=== PATIENT | male | born 1935 | race Caucasian/White ===

== ENCOUNTER 2018-01-19 18:31 | Inpatient (IN) | payer OTHER ==
[~2018-01-19] VITALS: Ht 177.8 cm; Wt 120.2 kg
[2018-01-19] MEDS ORDERED: ASPI-515 PO (19:12)
[2018-01-19] MEDS ORDERED: CALC-112 PO ×2 (19:12→19:14)
[2018-01-19] MEDS ORDERED: BUME0.5T PO (19:12)
[2018-01-19] MEDS ORDERED: LISI-170 PO (19:12)
[2018-01-19] MEDS ORDERED: LATA2.5D2 OP (19:12)
[2018-01-19] MEDS ORDERED: DOCU100C33 PO (19:12)
[2018-01-19] MEDS ORDERED: ALLO300T PO (19:12)
[2018-01-19] MEDS ORDERED: CHOL100011 PO (19:12)
[2018-01-19] MEDS ORDERED: SPIR25TA3 PO (19:12)
[2018-01-19] MEDS ORDERED: TIMO5DRO28 OP ×2 (19:12→19:14)
[2018-01-19] MEDS ORDERED: TRAZ100T15 PO (19:12)
[2018-01-19] MEDS ORDERED: PARO40TA3 PO (19:12)
[2018-01-19] MEDS ORDERED: WARF2.5T73 PO (19:12)
[2018-01-19] MEDS ORDERED: OMEP-110 PO (19:12)
[2018-01-19] MEDS ORDERED: CARV6.252 PO (19:12)
[2018-01-19] MEDS ORDERED: DIGO125T PO (19:12)
[2018-01-19] MEDS ORDERED: UBID100C24 PO (19:12)
[2018-01-19] MEDS ORDERED: ISOS20TA3 PO (19:12)
[2018-01-19] MEDS ORDERED: PRAV80TA2 PO (19:12)
[2018-01-19] MEDS ORDERED: SODIUM CHLORIDE 0.9% 1,000ML IVBOLUS ONE (19:30)
[2018-01-19] MEDS ORDERED: SODIUM CHLORIDE FLUSH 10ML SYR IVF ONE (19:30)
[2018-01-19 19:54] LABS: BASOPHILS # (AUTO) 0.05 x10^3/uL (0-0.1); BASOPHILS % (AUTO) 1 % (0-1); EOSINOPHILS # (AUTO) 0.34 x10^3/uL (0-0.4); EOSINOPHILS % (AUTO) 3 % (1-7); LYMPHOCYTES # (AUTO) 1.07 x10^3/uL (1-3.4); LYMPHOCYTES % (AUTO) 10 % (22-44); MD NO; MEAN CORPUSCULAR HEMOGLOBIN 30.9 pg (27.5-34.5); MEAN CORPUSCULAR HGB CONC 32.4 g/dL (33.2-36.2); MEAN CORPUSCULAR VOLUME 95.3 fL (81-97); MEAN PLATELET VOLUME 8.1 fL (7.4-10.4); MONOCYTES # (AUTO) 0.58 x10^3/uL (0.2-0.8); MONOCYTES % (AUTO) 5 % (2-9); NEUTROPHILS # (AUTO) 8.61 x10^3/uL (1.8-6.8); NEUTROPHILS % (AUTO) 81 % (42-75); PLATELET COUNT 178 x10^3/uL (130-400); RED BLOOD COUNT 4.46 x10^6/uL (4.38-5.82); RED CELL DISTRIBUTION WIDTH 15.6 % (9.4-14.8)
[2018-01-19 19:55] LABS: ALANINE AMINOTRANSFERASE 19 U/L (12-78); ALBUMIN 3.5 g/dL (3.4-5.0); ANION GAP 5 mmol/L (5-15); CALCIUM 9.4 mg/dL (8.5-10.1); CHLORIDE 104 mmol/L (98-107); CREATININE 1.35 mg/dL (0.7-1.3)
[2018-01-19 20:00] LABS: ALKALINE PHOSPHATASE 89 U/L (45-117); BILIRUBIN,TOTAL 0.5 mg/dL (0.2-1.0); T4 (THYROXINE) 5.6 mcg/dL (4.5-12.1); TOTAL PROTEIN 6.9 g/dL (6.4-8.2); TROPONIN I 0.093 ng/mL (0.000-0.045)
[2018-01-19 20:57] LABS: INTERNATIONAL NORMALIZED RATIO 3.53 (0.93-1.1); PROTHROMBIN TIME 35.5 Seconds (9.6-11.5)
[2018-01-19] MEDS ORDERED: ASPIRIN 81 MG TABLET CHEW PO ONE (21:00)
[2018-01-19] MEDS ORDERED: ASPIRIN 81 MG TABLET CHEW ONE (21:39)
[2018-01-19] MEDS ORDERED: BISACODYL 10 MG SUPP PR PRN (22:00)
[2018-01-19] MEDS ORDERED: POLYETHYLENE GLYCOL 17 GM PACKET PO PRN (22:00)
[2018-01-19] MEDS ORDERED: ONDANSETRON 2MG/ML, 2ML IVPush PRN (22:00)
[2018-01-19] MEDS ORDERED: ACETAMINOPHEN 325 MG TABLET PO PRN (22:00)
[2018-01-19] MEDS: PRAVASTATIN 40 MG TABLET PO SCH (23:21)
[2018-01-19] MEDS: DOCUSATE 100 MG CAPSULE PO SCH (23:32)
[2018-01-19] MEDS: HEPARIN 5,000 UNITS/ML, 1ML SQ SCH (23:32)
[2018-01-19] MEDS: CARVEDILOL 6.25 MG TABLET PO SCH (23:32)
[2018-01-19] MEDS: SODIUM CHLORIDE FLUSH 10ML SYR IVF SCH (23:32)
[2018-01-19 23:35] VITALS: BP 117/22
[2018-01-20 02:00] VITALS: BP 117/72
[2018-01-20 04:36] VITALS: BP 120/79
[2018-01-20 05:01] LABS: MICROSCOPIC NOT IND
[2018-01-20 05:20] LABS: CULTURE INDICATED? NO
[2018-01-20 07:19] VITALS: BP 127/89
[2018-01-20 07:34] LABS: BASOPHILS # (AUTO) 0.24 x10^3/uL (0-0.1); BASOPHILS % (AUTO) 2 % (0-1); EOSINOPHILS # (AUTO) 0.47 x10^3/uL (0-0.4); EOSINOPHILS % (AUTO) 4 % (1-7); LYMPHOCYTES # (AUTO) 1.25 x10^3/uL (1-3.4); LYMPHOCYTES % (AUTO) 12 % (22-44); MD NO; MEAN CORPUSCULAR HEMOGLOBIN 31.7 pg (27.5-34.5); MEAN CORPUSCULAR VOLUME 96.1 fL (81-97); MEAN PLATELET VOLUME 8.1 fL (7.4-10.4); MONOCYTES # (AUTO) 0.55 x10^3/uL (0.2-0.8); MONOCYTES % (AUTO) 5 % (2-9); NEUTROPHILS # (AUTO) 8.31 x10^3/uL (1.8-6.8); NEUTROPHILS % (AUTO) 77 % (42-75); PLATELET COUNT 169 x10^3/uL (130-400); RED BLOOD COUNT 4.32 x10^6/uL (4.38-5.82); RED CELL DISTRIBUTION WIDTH 15.4 % (9.4-14.8)
[2018-01-20 07:42] LABS: INTERNATIONAL NORMALIZED RATIO 2.78 (0.93-1.1); PROTHROMBIN TIME 28.1 Seconds (9.6-11.5)
[2018-01-20 07:47] LABS: ALBUMIN 3.5 g/dL (3.4-5.0); ANION GAP 4 mmol/L (5-15); CALCIUM 8.8 mg/dL (8.5-10.1); CHLORIDE 108 mmol/L (98-107)
[2018-01-20 07:50] LABS: ALANINE AMINOTRANSFERASE 18 U/L (12-78); ALKALINE PHOSPHATASE 90 U/L (45-117); BILIRUBIN,TOTAL 0.8 mg/dL (0.2-1.0); TOTAL PROTEIN 6.7 g/dL (6.4-8.2)
[2018-01-20 07:51] LABS: TROPONIN I 0.084 ng/mL (0.000-0.045)
[2018-01-20] MEDS ORDERED: TEMPLATE NON-FORMULARY MED. (Timolol (Betimol) 1 DROP) OP SCH (09:00)
[2018-01-20] MEDS ORDERED: WARFARIN 2.5 MG TABLET PO-COUM SCH (09:00)
[2018-01-20] MEDS ORDERED: TEMPLATE NON-FORMULARY MED. (Ubidecarenone (Coq-10) 100 MG) PO SCH (09:00)
[2018-01-20] MEDS: SPIRONOLACTONE 25 MG TABLET PO SCH (09:03)
[2018-01-20] MEDS: HEPARIN 5,000 UNITS/ML, 1ML SQ SCH ×2 (09:03→16:09)
[2018-01-20] MEDS: SODIUM CHLORIDE FLUSH 10ML SYR IVF SCH ×2 (09:03→21:47)
[2018-01-20] MEDS: BUMETANIDE 1 MG TABLET PO SCH (09:04)
[2018-01-20] MEDS: ASPIRIN 81 MG TABLET EC PO SCH (09:05)
[2018-01-20] MEDS: DOCUSATE 100 MG CAPSULE PO SCH ×2 (09:05→21:00)
[2018-01-20] MEDS: CARVEDILOL 6.25 MG TABLET PO SCH ×2 (09:05→21:46)
[2018-01-20] MEDS: DIGOXIN 0.125 MG TABLET PO SCH (09:06)
[2018-01-20] MEDS: CALCIUM/VITAMIN D3 250-125 TABLET PO SCH (09:06)
[2018-01-20] MEDS: ISOSORBIDE MONONITRATE ER 30 MG TABLET PO SCH (09:06)
[2018-01-20] MEDS: LISINOPRIL 5 MG TABLET PO SCH (09:07)
[2018-01-20] MEDS: PAROXETINE 20 MG TABLET PO SCH (09:07)
[2018-01-20] MEDS: ALLOPURINOL 300 MG TABLET PO SCH (09:08)
[2018-01-20] MEDS: SENNA/DOCUSATE TABLET PO SCH (09:08)
[2018-01-20] MEDS: CHOLECALCIFEROL 1,000 UNIT TABLET PO SCH (09:08)
[2018-01-20] MEDS: OMEPRAZOLE 20 MG CAPSULE.DR PO SCH (09:08)
[2018-01-20] MEDS: LATANOPROST OPHTH 0.005%, 2.5ML OP SCH (10:43)
[2018-01-20 13:41] VITALS: BP 111/77
[2018-01-20] MEDS ORDERED: TIMOLOL OPHTH 0.5%, 5ML OP SCH (14:17)
[2018-01-20] MEDS ORDERED: WARFARIN 2 MG TABLET PO-COUM ONE (17:16)
[2018-01-20] MEDS ORDERED: WARFARIN 1 MG TABLET PO-COUM ONE (17:21)
[2018-01-20] MEDS: WARFARIN 2.5 MG TABLET PO-COUM SCH (17:25)
[2018-01-20 21:00] VITALS: BP 125/78
[2018-01-20] MEDS: PRAVASTATIN 40 MG TABLET PO SCH (21:00)
[2018-01-20 23:29] VITALS: BP 120/66
[2018-01-21 00:40] VITALS: BP 115/73
[2018-01-21 05:43] LABS: BASOPHILS # (AUTO) 0.02 x10^3/uL (0-0.1); BASOPHILS % (AUTO) 0 % (0-1); EOSINOPHILS # (AUTO) 0.48 x10^3/uL (0-0.4); EOSINOPHILS % (AUTO) 5 % (1-7); LYMPHOCYTES # (AUTO) 1.08 x10^3/uL (1-3.4); LYMPHOCYTES % (AUTO) 11 % (22-44); MD NO; MEAN CORPUSCULAR HEMOGLOBIN 31.9 pg (27.5-34.5); MEAN CORPUSCULAR HGB CONC 33.2 g/dL (33.2-36.2); MEAN CORPUSCULAR VOLUME 95.9 fL (81-97); MEAN PLATELET VOLUME 8.3 fL (7.4-10.4); MONOCYTES # (AUTO) 0.58 x10^3/uL (0.2-0.8); MONOCYTES % (AUTO) 6 % (2-9); NEUTROPHILS # (AUTO) 7.92 x10^3/uL (1.8-6.8); NEUTROPHILS % (AUTO) 79 % (42-75); PLATELET COUNT 165 x10^3/uL (130-400); RED BLOOD COUNT 4.12 x10^6/uL (4.38-5.82); RED CELL DISTRIBUTION WIDTH 15.5 % (9.4-14.8)
[2018-01-21 05:48] LABS: ANION GAP 4 mmol/L (5-15); CALCIUM 8.6 mg/dL (8.5-10.1); CHLORIDE 106 mmol/L (98-107); CREATININE 1.35 mg/dL (0.7-1.3)
[2018-01-21 07:22] VITALS: BP 115/76
[2018-01-21] MEDS: PAROXETINE 20 MG TABLET PO SCH (08:41)
[2018-01-21] MEDS: CALCIUM/VITAMIN D3 250-125 TABLET PO SCH (08:41)
[2018-01-21] MEDS: HEPARIN 5,000 UNITS/ML, 1ML SQ SCH ×4 (08:41→23:54)
[2018-01-21] MEDS: ALLOPURINOL 300 MG TABLET PO SCH (08:42)
[2018-01-21] MEDS: CARVEDILOL 6.25 MG TABLET PO SCH ×2 (08:42→20:00)
[2018-01-21] MEDS: DOCUSATE 100 MG CAPSULE PO SCH ×2 (08:42→19:59)
[2018-01-21] MEDS: CHOLECALCIFEROL 1,000 UNIT TABLET PO SCH (08:42)
[2018-01-21] MEDS: OMEPRAZOLE 20 MG CAPSULE.DR PO SCH (08:42)
[2018-01-21] MEDS: DIGOXIN 0.125 MG TABLET PO SCH (08:42)
[2018-01-21] MEDS: BUMETANIDE 1 MG TABLET PO SCH (08:42)
[2018-01-21] MEDS: ISOSORBIDE MONONITRATE ER 30 MG TABLET PO SCH (08:42)
[2018-01-21] MEDS: ASPIRIN 81 MG TABLET EC PO SCH (08:42)
[2018-01-21] MEDS: SPIRONOLACTONE 25 MG TABLET PO SCH (08:42)
[2018-01-21] MEDS: SENNA/DOCUSATE TABLET PO SCH (08:42)
[2018-01-21] MEDS: LATANOPROST OPHTH 0.005%, 2.5ML OP SCH (08:43)
[2018-01-21] MEDS: TIMOLOL OPHTH 0.5%, 5ML OP SCH (08:43)
[2018-01-21] MEDS: LISINOPRIL 5 MG TABLET PO SCH (08:43)
[2018-01-21] MEDS: SODIUM CHLORIDE FLUSH 10ML SYR IVF SCH ×2 (08:43→19:59)
[2018-01-21 10:25] LABS: % IRON SATURATION 23 % (20-55); IRON LEVEL 60 mcg/dL (65-175); TOTAL IRON BINDING CAPACITY 263 mcg/dL (250-450)
[2018-01-21 12:53] VITALS: BP 117/75
[2018-01-21 16:16] LABS: INTERNATIONAL NORMALIZED RATIO 2.73 (0.93-1.1); PROTHROMBIN TIME 27.6 Seconds (9.6-11.5)
[2018-01-21 19:08] VITALS: BP 110/69
[2018-01-21] MEDS: WARFARIN 2.5 MG TABLET PO-COUM SCH (19:08)
[2018-01-21] MEDS: PRAVASTATIN 40 MG TABLET PO SCH (19:59)
[2018-01-22 01:02] VITALS: BP 116/77
[2018-01-22 05:14] LABS: BASOPHILS # (AUTO) 0.02 x10^3/uL (0-0.1); BASOPHILS % (AUTO) 0 % (0-1); EOSINOPHILS # (AUTO) 0.38 x10^3/uL (0-0.4); EOSINOPHILS % (AUTO) 4 % (1-7); LYMPHOCYTES # (AUTO) 1.08 x10^3/uL (1-3.4); LYMPHOCYTES % (AUTO) 10 % (22-44); MD NO; MEAN CORPUSCULAR HEMOGLOBIN 31.6 pg (27.5-34.5); MEAN PLATELET VOLUME 8.4 fL (7.4-10.4); MONOCYTES # (AUTO) 0.65 x10^3/uL (0.2-0.8); MONOCYTES % (AUTO) 6 % (2-9); NEUTROPHILS # (AUTO) 8.49 x10^3/uL (1.8-6.8); NEUTROPHILS % (AUTO) 80 % (42-75); PLATELET COUNT 159 x10^3/uL (130-400); RED BLOOD COUNT 4.09 x10^6/uL (4.38-5.82); RED CELL DISTRIBUTION WIDTH 15.5 % (9.4-14.8)
[2018-01-22 05:27] LABS: CHLORIDE 106 mmol/L (98-107)
[2018-01-22 05:34] LABS: ANION GAP 8 mmol/L (5-15); CALCIUM 8.7 mg/dL (8.5-10.1)
[2018-01-22 07:23] VITALS: BP 125/81
[2018-01-22] MEDS: HEPARIN 5,000 UNITS/ML, 1ML SQ SCH (08:00)
[2018-01-22 08:32] LABS: INTERNATIONAL NORMALIZED RATIO 2.66 (0.93-1.1); PROTHROMBIN TIME 26.9 Seconds (9.6-11.5)
[2018-01-22] MEDS: TIMOLOL OPHTH 0.5%, 5ML OP SCH (09:00)
[2018-01-22] MEDS: LATANOPROST OPHTH 0.005%, 2.5ML OP SCH (09:26)
[2018-01-22] MEDS: ALLOPURINOL 300 MG TABLET PO SCH (09:27)
[2018-01-22] MEDS: SPIRONOLACTONE 25 MG TABLET PO SCH (09:27)
[2018-01-22] MEDS: DOCUSATE 100 MG CAPSULE PO SCH ×2 (09:27→20:26)
[2018-01-22] MEDS: BUMETANIDE 1 MG TABLET PO SCH (09:27)
[2018-01-22] MEDS: ISOSORBIDE MONONITRATE ER 30 MG TABLET PO SCH (09:27)
[2018-01-22] MEDS: CHOLECALCIFEROL 1,000 UNIT TABLET PO SCH (09:27)
[2018-01-22] MEDS: SENNA/DOCUSATE TABLET PO SCH (09:27)
[2018-01-22] MEDS: ASPIRIN 81 MG TABLET EC PO SCH (09:27)
[2018-01-22] MEDS: LISINOPRIL 5 MG TABLET PO SCH (09:28)
[2018-01-22] MEDS: DIGOXIN 0.125 MG TABLET PO SCH (09:28)
[2018-01-22] MEDS: OMEPRAZOLE 20 MG CAPSULE.DR PO SCH (09:28)
[2018-01-22] MEDS: PAROXETINE 20 MG TABLET PO SCH (09:28)
[2018-01-22] MEDS: CARVEDILOL 6.25 MG TABLET PO SCH ×2 (09:28→20:27)
[2018-01-22] MEDS: SODIUM CHLORIDE FLUSH 10ML SYR IVF SCH ×2 (09:29→20:26)
[2018-01-22] MEDS: CALCIUM/VITAMIN D3 250-125 TABLET PO SCH (09:30)
[2018-01-22 12:16] VITALS: BP 108/72
[2018-01-22] MEDS ORDERED: WARFARIN 2.5 MG TABLET PO-COUM ONE (18:00)
[2018-01-22 19:51] VITALS: BP 129/82
[2018-01-22] MEDS: PRAVASTATIN 40 MG TABLET PO SCH (20:27)
[2018-01-23 02:16] VITALS: BP 125/79
[2018-01-23 05:49] LABS: INTERNATIONAL NORMALIZED RATIO 2.35 (0.93-1.1); PROTHROMBIN TIME 23.8 Seconds (9.6-11.5)
[2018-01-23 07:11] VITALS: BP 121/81
[2018-01-23] MEDS: SODIUM CHLORIDE FLUSH 10ML SYR IVF SCH (09:00)
[2018-01-23] MEDS: TIMOLOL OPHTH 0.5%, 5ML OP SCH (09:00)
[2018-01-23] MEDS: LISINOPRIL 5 MG TABLET PO SCH (09:13)
[2018-01-23] MEDS: CALCIUM/VITAMIN D3 250-125 TABLET PO SCH (09:14)
[2018-01-23] MEDS: CHOLECALCIFEROL 1,000 UNIT TABLET PO SCH (09:14)
[2018-01-23] MEDS: OMEPRAZOLE 20 MG CAPSULE.DR PO SCH (09:14)
[2018-01-23] MEDS: SENNA/DOCUSATE TABLET PO SCH (09:14)
[2018-01-23] MEDS: SPIRONOLACTONE 25 MG TABLET PO SCH (09:14)
[2018-01-23] MEDS: ASPIRIN 81 MG TABLET EC PO SCH (09:14)
[2018-01-23] MEDS: BUMETANIDE 1 MG TABLET PO SCH (09:14)
[2018-01-23] MEDS: DOCUSATE 100 MG CAPSULE PO SCH (09:14)
[2018-01-23] MEDS: PAROXETINE 20 MG TABLET PO SCH (09:14)
[2018-01-23] MEDS: ALLOPURINOL 300 MG TABLET PO SCH (09:14)
[2018-01-23] MEDS: CARVEDILOL 6.25 MG TABLET PO SCH (09:14)
[2018-01-23] MEDS: DIGOXIN 0.125 MG TABLET PO SCH (09:14)
[2018-01-23] MEDS: LATANOPROST OPHTH 0.005%, 2.5ML OP SCH (09:15)
[2018-01-23] MEDS: ISOSORBIDE MONONITRATE ER 30 MG TABLET PO SCH (09:15)
[2018-01-23 12:38] VITALS: BP 124/78
[2018-01-23] MEDS ORDERED: WARFARIN 2.5 MG TABLET PO-COUM ONE (18:00)
== END 2018-01-23 15:56 | DRG 281 ==
LOC: ED 21:47 → EDIP 21:56 → 4EST 22:36
PROVIDERS: ADMIT Internal Medicine; ATTEND Internal Medicine
DX: I21.4 Non-ST elevation (NSTEMI) myocardial infarction (principal); N17.9 Acute kidney failure, unspecified; I50.9 Heart failure, unspecified; H40.9 Unspecified glaucoma; E78.5 Hyperlipidemia, unspecified; Z66 Do not resuscitate; I25.2 Old myocardial infarction; W18.39XA Other fall on same level, initial encounter; Y93.89 Activity, other specified; Y92.098 Other place in other non-institutional residence as the place of occurrence of the external cause; Y99.8 Other external cause status; I11.0 Hypertensive heart disease with heart failure; H91.90 Unspecified hearing loss, unspecified ear; Z79.01 Long term (current) use of anticoagulants; Z95.0 Presence of cardiac pacemaker; Z95.5 Presence of coronary angioplasty implant and graft; R53.81 Other malaise; Z87.01 Personal history of pneumonia (recurrent); Z88.6 Allergy status to analgesic agent; Z88.8 Allergy status to other drugs, medicaments and biological substances
CPT/HCPCS: 36415; 70450; 71045; 72110; 80048; 80053; 81003; 83540; 83550; 83605; 83735; 83880; 84436; 84443; 84484; 85025; 85610; 93005; 93306; J1644; J7030